=== PATIENT | female | born 1950 | race Caucasian/White ===

== ENCOUNTER 2017-02-08 16:48 | Emergency (ER) | payer MEDICARE, MEDICAID ==
[~2017-02-08] VITALS: Ht 167.6 cm; Wt 81.2 kg
--- NOTE | 2017-02-08 17:10 | Urgent Treatment Center Report ---
History of Present Issue Date/Time Seen by Provider 02/08/17 1709 Visit Reason Pt arrived:Walked Presenting Problem:PT STATES SHE'S HAD BLEEDING FROM THE RECTUM Location if Accident: Onset of symptoms date/time:/ or onset unknown for:MEDICAL HX UNKNOWN Have you (or family members/close friends) recently traveled outside the [place]? N If Yes, where/when: Have you had exposure to infectious disease within the past month? TB? Other? Specify: Patient state that she has had a hemorrhoid for quite awhile now State that earlier today it began to bother her and began to bleed some from it. States that she put a pad on and had to change the pad several times today while at work then this evening it stopped bleeding States that she has an appointment with her family doctor on Tuesday but her family wanted her to come in this evening just to get checked to make sure that she did have a hemorrhoid and not something else going on ALLERGIES Coded Allergies: No Known Allergies (02/08/17) Home Medications Reported Medications Lovastatin 10 MG PO DAILY #30 LISINOPRIL (Lisinopril) 10 MG PO DAILY History Medical History General CAD? No Angina: Yes MS: No Hypertension? No Hyperlipidemia? Yes CHF? No COPD? No Asthma? No Anemia? No Hernia? No Thyroid Problems? No Hypothyroidism? No CVA? No Seizures? No Diabetes? No UTI? Yes Stones? No GB Disease: Yes Nephritic Syndrome? No Asplenia? No Hepatitis? No Sickle Cell Disease? No Arthritis? No Cataracts? No Glaucoma? No MRSA? No TB? No Cancer? No Immunization HX DT/Tetanus 5-10 YRS Flu REFUSES Pneumonia REFUSES Surgical Hx Previous Surgery?Y Tubal Ligation ELBOW CYST R FOOT BUNION HYSTERECTOMY GALLBLADDER R ELBOW REPLACEMENT L ROTATOR CUFF Family History Family HX Diabetes Yes CAD Yes Hypertension Yes Hyperlipidemia Yes Cancer Yes TB No Social History Smoking Hx Smoker: Current Every Day Smoker Tobacco: Yes Type Cigarettes Packs/day 1 1/2 - 2 Packs Alcohol Alcohol: No Review of Systems All Other Systems Reviewed and Negative Comment Pain and bleeding from external hemorrhoid Physical Exam Vital Signs Vital Signs Date Time Temp Pulse Resp B/P Pulse O2 O2 Flow FiO2 Ox Delivery Rate 02/08 1701 98.4 87 20 139/70 97 General Appearance normal appearance, WD/WN, no apparent distress Respiratory Status Yes: trachea midline, chest symmetrical, non tender chest. No: respiratory distress. 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, beeped by hospital dyed yarn operator awaiting call back [facility] Progress Notes [address] Greenfield advised to have patient do sitz bathes at home, prescribe protocort and have them call the office in the morning for appointment Departure Departure Time of Disposition 1729 Disposition DC Home or Self Care(routine) Clinical Impression Primary Impression: Hemorrhoid Qualifiers: Hemorrhoid type: unspecified Qualified Code: K64.9 - Unspecified hemorrhoids Condition STABLE Referrals Chu AMBROSE,Salinas Cardenas MD,Scotty Silva (Family) Patient Instructions DI for Hemorrhoids, Hemorrhoids Additional Instructions Warm sitz baths will help to soothe the rectal area and the Hemorrhoid Use medication as prescribed Tomorrow call Dr Sage/ Surgical clinic for appointment in the next couple days If area begans to bleed again and will not stop go straight to the ER REturn if needed FOllow up with family doctor Discharge Counseling Counseled pt/family regarding diagnosis, medications/RX, home care, follow up needs Prescriptions Current Visit Scripts Hydrocortisone (Proctocort) 1 UNIT TP QID #1 TUBE Apply thin layer of medication to rectal area on hemorrhoid four times daily at 1738
--- NOTE | 2017-02-08 17:10 | Urgent Treatment Center Report ---
History of Present Issue Date/Time Seen by Provider 02/08/17 1709 Visit Reason Pt arrived:Walked Presenting Problem:PT STATES SHE'S HAD BLEEDING FROM THE RECTUM Location if Accident: Onset of symptoms date/time:/ or onset unknown for:MEDICAL HX UNKNOWN Have you (or family members/close friends) recently traveled outside the [place]? N If Yes, where/when: Have you had exposure to infectious disease within the past month? TB? Other? Specify: Patient state that she has had a hemorrhoid for quite awhile now State that earlier today it began to bother her and began to bleed some from it. States that she put a pad on and had to change the pad several times today while at work then this evening it stopped bleeding States that she has an appointment with her family doctor on Tuesday but her family wanted her to come in this evening just to get checked to make sure that she did have a hemorrhoid and not something else going on ALLERGIES Coded Allergies: No Known Allergies (02/08/17) Home Medications Reported Medications Lovastatin 10 MG PO DAILY #30 LISINOPRIL (Lisinopril) 10 MG PO DAILY History Medical History General CAD? No Angina: Yes [place]: No Hypertension? No Hyperlipidemia? Yes CHF? No COPD? No Asthma? No Anemia? No Hernia? No Thyroid Problems? No Hypothyroidism? No CVA? No Seizures? No Diabetes? No UTI? Yes Stones? No GB Disease: Yes Nephritic Syndrome? No Asplenia? No Hepatitis? No Sickle Cell Disease? No Arthritis? No Cataracts? No Glaucoma? No MRSA? No TB? No Cancer? No Immunization HX DT/Tetanus 5-10 YRS Flu REFUSES Pneumonia REFUSES Surgical Hx Previous Surgery?Y Tubal Ligation ELBOW CYST R FOOT BUNION HYSTERECTOMY GALLBLADDER R ELBOW REPLACEMENT L ROTATOR CUFF Family History Family HX Diabetes Yes CAD Yes Hypertension Yes Hyperlipidemia Yes Cancer Yes TB No Social History Smoking Hx Smoker: Current Every Day Smoker Tobacco: Yes Type Cigarettes Packs/day 1 1/2 - 2 Packs Alcohol Alcohol: No Review of Systems All Other Systems Reviewed and Negative Comment Pain and bleeding from external hemorrhoid Physical Exam Vital Signs Vital Signs Date Time Temp Pulse Resp B/P Pulse O2 O2 Flow FiO2 Ox Delivery Rate 02/08 1701 98.4 87 20 139/70 97 General Appearance normal appearance, WD/WN, no apparent distress Respiratory Status Yes: trachea midline, chest symmetrical, non tender chest. No: respiratory distress. 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 by hospital scrap drop operator awaiting call back [facility] Progress Notes [address] Greenfield advised to have patient do sitz bathes at home, prescribe protocort and have them call the office in the morning for appointment Departure Departure Time of Disposition 1729 Disposition DC Home or Self Care(routine) Clinical Impression Primary Impression: Hemorrhoid Qualifiers: Hemorrhoid type: unspecified Qualified Code: K64.9 - Unspecified hemorrhoids Condition STABLE Referrals Chu AMBROSE,Salinas Cardenas MD,Scotty Silva (Family) Patient Instructions DI for Hemorrhoids, Hemorrhoids Additional Instructions Warm sitz baths will help to soothe the rectal area and the Hemorrhoid Use medication as prescribed Tomorrow call Dr Sage/ Surgical clinic for appointment in the next couple days If area begans to bleed again and will not stop go straight to the ER REturn if needed FOllow up with family doctor Discharge Counseling Counseled pt/family regarding diagnosis, medications/RX, home care, follow up needs Prescriptions Current Visit Scripts Hydrocortisone (Proctocort) 1 UNIT TP QID #1 TUBE Apply thin layer of medication to rectal area on hemorrhoid four times daily at 1733
[2017-02-08 17:40] VITALS: BP 139/70
== END 2017-02-08 17:44 | disposition home or self-care (01) ==
LOC: UTC 16:48
DX: K64.9 Unspecified hemorrhoids (principal); E78.5 Hyperlipidemia, unspecified; Z79.899 Other long term (current) drug therapy

== ENCOUNTER → 2017-02-14 | Outpatient (CLI) | payer MEDICARE, MEDICAID ==
[~2017-02-14] MED LIST: ADIPEX-P37.5 MG PO; CIPRO 500MG TA500 MG PO; FLEXERIL10 MG PO; GABAPENTIN300 MG PO; HYDROCODONE/ACE1 TA5 PO; HYDROCODONE1 TABLET PO; IBU800 M1 PO; IBU800 MG PO; LEVAQUIN 750 M750 MG PO; LEVAQUIN500 MG PO; LISINOPRIL 10MG10 MG PO; LORTAB 5/500 501 TAB PO; LORTAB 500 MG-71 TAB PO; LOVASTATIN10 MG PO; MECLIZINE25 MG PO; MEDROL 4MG. DOSE4 MG PO; Meclizine25 MG PO; NAPROSYN 500MG500 MG PO; NEURONTIN 300M300 MG PO; NEXIUM40 MG PO; NOMEDS *; PREDNISONE 20MG20 MG PO; PRILOSEC20 M1 PO; PROCTOCORT1% TP; PROMETHAZINE HC25 M1 PO; SEPTRA DS 800 M1 TA1 PO; TRAMADOL 50MG T50 MG PO; VICODIN 5/500 T1 TAB PO; VOLTAREN75 MG PO; WARFARIN SODIU2.5 MG PO; ZOFRAN 8MG TABLE8 MG PO
[2017-02-14 11:27] LABS: HEMOGLOBIN 12.8 g/dL (12.2-16.2); LYMPH # 1.9 K/mm3 (0.7-4.5); LYMPH % 33.4 % (10-50.0)
[2017-02-14 12:17] LABS: BUN 14 mg/dL (7-18)
[2017-02-14 12:19] LABS: GFR (ESTIMATED) 63 ML/MIN (59-)
== END ==
LOC: LAB 11:11
PROVIDERS: Surgery
DX: K64.5 Perianal venous thrombosis (principal)

== ENCOUNTER 2017-02-15 11:35 | Day surgery (SDC) | payer MEDICARE, MEDICAID ==
[~2017-02-15] VITALS: Ht 170.2 cm; Wt 78.9 kg
--- NOTE | 2017-02-15 15:13 | Anesthesia Record ---
Anesthesia Record Part II Discharge time: 1540 Destination: Same day surgery PACU nurse assessment review? Yes Patient is: Stable Anesthesia complications? No at 1519
--- NOTE | 2017-02-15 15:13 | Anesthesia Record ---
Anesthesia Record Part I Total IV fluids: 900 EBL (ml): 5 Urine Output: 0 B/P: 131/66 % SaO2: 93 Pulse: 85 Resps: 16 Temp: 98.1 Patient is: Drowsy, Stable Stable to PACU at: 1510 at 1514
--- NOTE | 2017-02-15 15:16 | Operative Note ---
Surgeon/Diagnoses Surgeon/Maintenance Service Supervisor(s) Date of procedure: 02/15/17 Surgeon: Salinas Sage Diagnoses Pre-op diagnosis: Thrombosed external hemorrhoid Post-op diagnosis Same Procedure Procedure Procedure: Simple hemorrhoidectomy for external hemorrhoids Indications: SAMIR CH is a 66 year-old Female with a history of hemorrhoids. Patient is a 66-year-old white female referred from the urgent treatment center for hemorrhoid. She states that she's had a swollen tender hemorrhoid for about 3 weeks. Last week she had a large amount of bleeding. She states that she saturated 2 pads. When she was seen in the [facility] the bleeding stopped. She was started on some sort of salve. She still describes some significant tenderness. Of note, the patient underwent colonoscopy by Dr. Rutledge less than 3 years ago and had a benign cecal polyp removed. She was seen in the office yesterday. She had a residual large thrombosed external hemorrhoid in the LEFT posterior lateral location with large amount of residual blood clot. Plan was made for evacuation of clot and simple hemorrhoidectomy. Findings: Thrombosed hemorrhoid in the posterior lateral LEFT location Procedure Description: Consent was obtained patient was taken the operating room. Gen. anesthesia was induced. She was positioned in traditional lithotomy position. Area was prepped and draped in standard surgical fashion. Anoscope was inserted. In the LEFT posterior lateral location she had an external hemorrhoid which was thrombosed with significant amount of residual clots. Limited incision was made. Using Metzenbaum dissection the overlying anoderm was excised. Metzenbaum dissection and was evacuated from the hemorrhoid. This was sent as hemorrhoidal tissue. There was good hemostasis. Local anesthesia was infiltrated. Skin was closed with several interrupted 3-0 chromic sutures. Dressing was applied. EBL (ml): 20 Anesthesia: Gen. Specimens: Hemorrhoidal tissue Disposition Disposition: To PACU at [id number]
[2017-02-15 16:16] VITALS: BP 126/66
== END 2017-02-15 16:10 | disposition home or self-care (01) ==
LOC: SDC 11:35
PROVIDERS: Surgery
PROC: 06BY3ZC Excision of Hemorrhoidal Plexus, Percutaneous Approach (ICD-10-PCS; principal; 2017-02-15 13:30)
DX: K64.5 Perianal venous thrombosis (principal)
CPT/HCPCS: J0131; J2405

== ENCOUNTER 2017-04-10 14:50 | Emergency (ER) | payer MEDICARE, MEDICAID ==
[~2017-04-10] VITALS: Ht 170.2 cm; Wt 81.2 kg
[~2017-04-10 14:50] MED LIST changes: +AMLODIPINE5 M1; +HYDROCODONE-APA1 TA1; +MELOXICAM7.5 MG
[2017-04-10] MEDS ORDERED: CEFTIN 250MG T250 MG PO (15:26)
[2017-04-10] MEDS ORDERED: TESSALON PERLE100 M1 PO (15:26)
--- NOTE | 2017-04-10 15:28 | Emergency Room Report ---
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 N Clinical Suspician of Infection? N Mental Status: 1 - Regular (Normal Baseline) Sepsis Risk:Low Sepsis Risk Have you (or family members/close friends) recently traveled outside the [place]? N If Yes, where/when: Have you had exposure to infectious disease within the past month? N TB? Other? Specify: 66 years old white female with history of hypertension. She developed upper respiratory tract infection in the form of a sore throat and runny nose and sinus congestion. He felt it going down to her chest with a sense of chest heaviness that lasted yesterday. The symptoms resolved today. She continues to have head congestion and cough. Source patient, RN notes reviewed, family Exam Limitations no limitations ALLERGIES Coded Allergies: No Known Allergies (02/15/17) Home Medications Reported Medications Amlodipine Besylate (Amlodipine) Meloxicam (Meloxicam 7.5MG) HYDROCODONE 5MG/APAP 325MG (Hydrocodon-Acetaminophen 5-325) Lovastatin 10 MG PO DAILY #30 History Medical History General CAD? No Angina: Yes [place]: No Hypertension? Yes Hyperlipidemia? Yes CHF? No DVT? No PE? No COPD? No Asthma? No Anemia? No GERD? Yes Gastric ulcers? No GI Bleed? No Hernia? No Thyroid Problems? No Hypothyroidism? No CVA? No Seizures? No Diabetes? No End Stage Renal Disease? No UTI? Yes Stones? No GB Disease: Yes Nephritic Syndrome? No Asplenia? No Hepatitis? No Sickle Cell Disease? No Arthritis? No Cataracts? No Glaucoma? No MRSA? No TB? No Cancer? No Immunization Hx DT/Tetanus 5-10 YRS Flu REFUSES Pneumonia REFUSES Surgical Hx Previous Surgery?Y Tubal Ligation ELBOW CYST R FOOT BUNION HYSTERECTOMY GALLBLADDER R ELBOW REPLACEMENT L ROTATOR CUFF Family History Family Hx Diabetes Yes CAD Yes Hypertension Yes Hyperlipidemia Yes Cancer Yes TB No Social History Smoking Hx Smoker: Never Smoker Tobacco: No Packs/day 1 1/2 - 2 Packs Alcohol Alcohol: No Review of Systems All Other Systems Reviewed and Negative Constitutional no symptoms reported Eyes no symptoms reported ENT no symptoms reported. Respiratory see HPI, cough, shortness of breath Cardiovascular see HPI, chest pain (tightness yesterday that resol) Gastrointestinal no symptoms reported Genitourinary no symptoms reported. Musculoskeletal no symptoms reported Skin no symptoms reported Psychiatric/Neurological no symptoms reported Physical Exam Vital Signs Vital Signs Date Time Temp Pulse Resp B/P Pulse O2 O2 Flow FiO2 Ox Delivery Rate 04/10 1605 97.9 90 18 105/82 98 04/10 1458 97.9 90 18 103/82 98 - WBC >12,000 or <4,000 or 10% bands? 2 or more SIRS Criteria Met? B/P:103/ MAP:89 Creatinine >2.0? UA output<0.5ml/kg/hr for 2 hrs? Platelet count >100,000? Lactate >2.0mmol/1? INR >1.2 or PTT > than 60 sec? Evidence of Organ Dysfunction? Provider documented clinical suspician of infection? N Sepsis Criteria Count: 1 Sepsis Risk: Low Sepsis Risk General Appearance normal appearance, WD/WN, no apparent distress Eye Exam - bilateral eye normal exam, bilateral eye PERRL, bilateral eye EOMI Ear, Nose, Throat hearing grossly normal, normal ENT inspection, sinus pain/ drainage Neck normal inspection, non-tender, supple, full range of motion Respiratory Status Yes: trachea midline, chest symmetrical, non tender chest. No: respiratory distress. Lung Sounds bilateral: normal breath sounds, lungs clear. 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 No Results/Orders Laboratory Tests 04/10/17 1522: Sodium 145, Potassium 3.4 L, Chloride 105, Carbon Dioxide 32, BUN 9, Creatinine 1.0, Estimated Creat Clear 71, Estimated GFR (MDRD) 55 L, Glucose 114 H, Calcium 9.2, Total Bilirubin 0.4, AST 15, ALT 19, Alkaline Phosphatase 93, Creatine Kinase 56, CK-MB (CK-2) Rel Index 0.9, CK and CKMB Interp < 0.5, Troponin I < 0.02, Total Protein 7.5, Albumin 3.6, Globulin 3.9 H, Albumin/ Globulin Ratio 0.9 L, WBC 6.0, RBC 4.50, Hgb 13.4, Hct 40.8, MCV 90.6, RDW 12.4 , Plt Count 207, MPV 9.9, Gran % 64.9, Gran # 3.9, Lymphocytes % 23.7, Monocytes % 7.4, Eosinophils % 3.4, Basophils % 0.7, Lymphocytes # 1.4, Monocytes # 0.5, Eosinophils # 0.2, Basophils # 0.0, PUBS MCHC 32.9, MCH 29.8, Influenza Type A Ag NOT DETECTED, Influenza Type B Ag NOT DETECTED Current Medication Orders Sig/Mariano Start time Last Medication Dose Route Stop Time Status Admin Ondansetron HCl 4 MG ONCE ONE 04/10 1615 DC 04/10 IV 04/10 161 1607 Potassium Chloride 20 MEQ ONCE ONE 04/10 1615 DC PO 04/10 1616 Ondansetron HCl 0 .STK-MED ONE 04/10 1608 DC .ROUTE Albuterol/Ipratropium 0 .STK-MED ONE 04/10 1550 DC INH Ceftriaxone Sodium 0 .STK-MED ONE 04/10 1542 DC IV Sodium Chloride 50 ML .STK-MED ONE 04/10 1541 DC IV Hydrocodone Bit/ 0 .STK-MED ONE 04/10 1540 DC Homatropine MBr PO Methylprednisolone 0 .STK-MED ONE 04/10 1538 DC Sodium Succinate .ROUTE Albuterol/Ipratropium 3 ML ONCE ONE 04/10 1530 DC 04/10 INH 04/10 1531 1551 Ceftriaxone Sodium 1 GM ONCE ONE 04/10 1530 DC 04/10 Sodium Chloride 50 ML IV 04/10 1559 1542 Hydrocodone Bit/ 5 MG ONCE ONE 04/10 1530 DC 04/10 Homatropine MBr PO 04/10 1531 1543 Methylprednisolone 125 MG ONCE ONE 04/10 1530 DC 04/10 Sodium Succinate IV 04/10 1531 1542 Sodium Chloride 10 ML PRN PRN 04/10 1530 AC IV 04/11 1518 Orders Procedure Date/time Status CULTURE, BLOOD 04/10 1531 Active RT REQUEST DUONEB 04/10 1528 Active ELECTROCARDIOGRAM REQUEST 04/10 1518 Active CHEST(2 VIEWS-NOT PORTABLE) 04/10 1518 Active IV SALINE LOCK 04/10 1518 Active INFLUENZA A&B ANTIGENS 04/10 1518 Complete CBC WITH AUTO DIFF 04/10 1518 Complete CARDIAC ENZYMES 04/10 1518 Complete CHEM 12 PROFILE 04/10 1518 Complete XRAY/CT/US XRAY/CT/US XRAY chest XR interpretation by reviewed by me Xray Results abnormal, no infiltrates Comment RIGHT apical pleural thickening versus rotated x ray, No pneumothorax no acute infiltrates. Departure Departure Time of Disposition 1619 Disposition DC Home or Self Care(routine) Clinical Impression Primary Impression: Upper respiratory disease Secondary Impressions: Acute bronchitis, Reactive airway disease Condition STABLE Referrals Mike Cardenas MD Additional Instructions The patient received steroid injections given neb and was breathing better but she felt nausea. He was given some Zofran. Her potassium was 3.4 she was given one tablet of potassium. She will be discharged on antibiotics, cough medicine and an albuterol inhaler. Follow-up with a primary care physician in a.m.. Return if worse or she develops fever or weakness. Or any other symptoms Discharge Counseling Counseled pt/family regarding diagnosis, test results, medications/RX, home care, follow up needs Prescriptions Current Visit Scripts CEFUROXIME AXETIL (CEFTIN 250MG TAB) 250 MG PO BID #14 TAB Benzonatate (Tessalon Perle) 100 MG PO Q4HP [facility]N [facility] [place] SGL ALBUTEROL (Proventil Hfa Inhaler) 1-2 PUFF IH Q4-6H PRN #1 CAN ED Critical Care Critical Care No If Critical Care minutes are documented, the time involved in the performance of seperately reportable procedures was not counted toward critical care time documented. I directly delivered medical care to this critically ill and/or injured patient. Timely evaluation and treatment was necessary to address the significant organ system(s) dysfunction present in this patient. at 7832
[2017-04-10 15:30] LABS: HEMOGLOBIN 13.4 g/dL (12.2-16.2); LYMPH # 1.4 K/mm3 (0.7-4.5); LYMPH % 23.7 % (10-50.0)
[2017-04-10 15:53] LABS: BUN 9 mg/dL (7-18)
[2017-04-10 15:54] LABS: GFR (ESTIMATED) 55 ML/MIN (59-)
--- OUTSIDE RECORDS SUMMARY | 2017-04-10 15:56 | External Medical Summary Rpt ---
Author Author [employer], [employer] Organization [employer] Address Unknown Phone Unavailable Results Basic metabolic panel in Blood Observa Value Referen Units Interpr Notes Date tion ce etation Range Urea 7 - 18 mg/dL Normal No Sep 25 nitrogen informati 2017 [Mass/vol on in 11:11 AM ume] in source Serum or data Plasma Calcium 8.5 - mg/dL Normal No Sep 25 [Mass/vol 10.1 informati 2017 ume] in on in 11:11 AM Serum or source Plasma data Chloride 98 - 107 mmoL/L Normal No Sep 25 [Moles/vo informati 2017 lume] in on in 11:11 AM Serum or source Plasma data Carbon 21.0 - mmoL/L Normal No Sep 25 dioxide, 32.0 informati 2017 total on in 11:11 AM [Moles/vo source lume] in data Serum or Plasma Creatinin 0.55 - mg/dL Normal No Sep 25 e 1.02 informati 2017 [Mass/vol on in 11:11 AM ume] in source Serum or data Plasma Estimated 59- ML/MIN No REFERENCE Sep 25 informati RANGE: 2017 glomerula on in >60 11:11 AM r source ML/MIN/1. filtratio data 73 SQUARE n rate METERSIf (GF this patient is -A merican, then multiply theresult by 1.210. Glucose 74 - 106 mg/dL Normal No Sep 25 [Mass/vol informati 2017 ume] in on in 11:11 AM Serum or source Plasma data Potassium 3.5 - 5.1 mmoL/L Normal No Sep 25 informati 2017 [Moles/vo on in 11:11 AM lume] in source Serum or data Plasma Sodium 136 - 145 mmoL/L Normal No Sep 25 [Moles/vo informati 2017 lume] in on in 11:11 AM Serum or source Plasma data CBC W Auto Differential panel in Blood Observa Value Referen Units Interpr Notes Date tion ce etation Range Basophils 0 - 0.2 K/MM3 Normal No Sep 25 informati 2017 [#/volume on in 11:11 AM ] in source Blood by data Automated count Basophils 0.1 - 2.0 % Normal No Sep 25 /100 informati 2016 leukocyte on in 11:11 AM s in source Blood by data Automated count Eosinophi 0.0 - 0.4 K/mm3 Normal No Sep 25 ls informati 2017 [#/volume on in 11:11 AM ] in source Blood by data Automated count Eosinophi 0.1 - % Normal No Sep 25 ls/100 12.0 informati 2016 leukocyte on in 11:11 AM s in source Blood by data Automated count Granulocy 1.8 - 7.8 K/mm3 Normal No Sep 25 kamlesh informati 2016 [#/volume on in 11:11 AM ] in source Blood by data Automated count Granulocy 37.0 - % Normal No Sep 25 kamlesh/100 80.0 informati 2016 leukocyte on in 11:11 AM s in source Blood by data Automated count Hematocri 37.0 - % Normal No Sep 25 t [Volume 47.0 informati 2017 on in 11:11 AM Fraction] source of Blood data Hemoglobi 12.2 - g/dL Normal No Sep 25 n 16.2 informati 2016 [Mass/vol on in 11:11 AM ume] in source Blood data Lymphocyt 0.7 - 4.5 K/mm3 Normal No Sep 25 es informati 2017 [#/volume on in 11:11 AM ] in source Unspecifi data ed specimen by Automated count Lymphocyt 10 - 50.0 % Normal No Sep 25 es informati 2017 [#/volume on in 11:11 AM ] in source Unspecifi data ed specimen by Automated count Erythrocy 27 - 31.2 pg Normal No Sep 25 te mean informati 2017 corpuscul on in 11:11 AM ar source hemoglobi data n [Entitic mass] Erythrocy 31.8 - g/dl Normal No Sep 25 te mean 35.4 informati 2017 corpuscul on in 11:11 AM ar source hemoglobi data n concentra tion [Mass/vol ume] by Automated count Erythrocy 82.2 - fl Normal No Sep 25 te mean 97.8 informati 2016 corpuscul on in 11:11 AM ar volume source [Entitic data volume] by Automated count Monocytes 0.1 - 1.0 K/mm3 Normal No Sep 25 inform2016 [#/volume on in 11:11 AM ] in source Blood by data Automated count Monocytes 1.7 - 9.3 % Normal No Sep 25 /100 informati 2016 leukocyte on in 11:11 AM s in source Blood by data Automated count Platelet 7.4 - fl Normal No Sep 25 mean 10.4 informati 2016 volume on in 11:11 AM [Entitic source volume] data in Blood by Automated count Platelets 142 - 424 K/mm3 Normal No Sep 25 informati 2016 [#/volume on in 11:11 AM ] in source Blood data Erythrocy 4.2 - 5.4 M/mm3 Normal No Sep 25 kamlesh inform2016 [#/volume on in 11:11 AM ] in source Amniotic data fluid Erythrocy 11.5 - % Normal No Sep 25 te 17.5 informati 2016 distribut on in 11:11 AM ion width source [Entitic data volume] by Automated count Leukocyte 4.8 - K/MM3 Normal No Sep 25 s 10.8 informati 2016 [#/volume on in 11:11 AM ] in source Blood data
--- OUTSIDE RECORDS SUMMARY | 2017-04-10 15:56 | External Medical Summary Rpt | CCD ---
Author Author [employer] Organization [employer] Address Unknown Phone Unavailable Purpose Continuity of Care Document - through 2016
--- OUTSIDE RECORDS SUMMARY | 2017-04-10 15:56 | External Medical Summary Rpt | CCD ---
Author Author , ESTER Organization ESTER Address Unknown Phone [email or web address] Team Providers Care Career Professional Name Role Phone Dwayne Pathak III, MD, Dwayne Lehman III, MD Purpose Continuity of Care Document - 10-19-2012 through 2016 Problems Code Diagnosis DOS Provider Status 786.59 786.59 10-19-2012 [place] CHEST PAIN [facility] E03.9 HYPOTHYROID ISM, UNSPECIFIED E11.9 TYPE 2 DIABETES MELLITUS WITHOUT COMPLICATIO NS E78.4 OTHER HYPERLIPIDE JOSE DAVID E78.5 HYPERLIPIDE JOSE DAVID, UNSPECIFIED K64.5 PERIANAL VENOUS THROMBOSIS L23.9 ALLERGIC CONTACT DERMATITIS, UNSPECIFIED CAUSE M54.16 RADICULOPAT HY, LUMBAR REGION R53.1 WEAKNESS R74.8 ABNORMAL LEVELS OF OTHER SERUM ENZYMES Z12.31 ENCNTR SCREEN MAMMOGRAM FOR MALIGNANT NEOPLASM OF BREAST Allergies, Adverse Reactions, Alerts Type Drug Allergy Adverse Reaction to Substance Substance Reaction Severity No Known Allergies - Unknown Mild Nka NO KNOWN DRUG Unknown Unknown ALLERGIES Medications Na ND Rx Da Fi Fi Am Da Di Ph RX Ph St me C No te ll ll ou ys ag ar # ys at rm s nt no ma ic us Or Da si cy ia de te s n re d 63 05 0 No PI 73 -3 RI 90 0- Lo N 43 20 ng 81 40 13 er 1 MG Ac ti CH ve EW AB LE TA BL ET Ni 68 05 0 No tr 46 -3 og 20 0- Lo ly 14 20 ng ce 64 13 er ri 5 n Ac 0. ti 4M ve G ( 50 Gr ) Vital Signs 10-19-2012 18:40 Name Value Interpretat Reference Comment ion Range Body 98.0 [degF] Temperature BP 71 mm[Hg] Diastolic BP Systolic 131 mm[Hg] Heart 74 /min Rate/Pulse O2% 99 % Respiratory 18 /min Rate 10-19-2012 15:08 Name Value Interpretat Reference Comment ion Range BP 86 mm[Hg] Diastolic BP Systolic 133 mm[Hg] Heart 75 /min Rate/Pulse O2% 98 % Respiratory 18 /min Rate Results Labs Lab Lab Date Result Refere Interp Status Commen Order Detail nces retati t Range on COMPREHENSIVE METABOLIC PANEL (10-19-2012 14:45) Glucose 30-2 89 74-106 complet 013 mg/dL ed Bld-mCn 14:45 c BUN 30-2 19 7-18 complet Bld-mCn 013 mg/dL ed c 14:45 Creat -30-2 0.9 0.6-1.0 complet SerPl-m 013 mg/dL ed Cnc 14:45 GFR 10-19-2 63 59- complet (ESTIMA 013 ML/MIN ed DICK) 14:45 Sodium 10-19-2 140 136-145 complet SerPl-s 013 mmoL/L ed Cnc 14:45 Potassi 10-19-2 4.2 3.5-5.1 complet um 013 mmoL/L ed SerPl-s 14:45 Cnc Chlorid 10-19-2 103 98-107 complet e 013 mmoL/L ed SerPl-s 14:45 Cnc CO2 30-2 27 21.0-32 complet SerPl-s 013 mmoL/L .0 ed Cnc 14:45 Calcium 10-19-2 9.1 8.5-10. complet 013 mg/dL 1 ed SerPl-m 14:45 Cnc Prot -30-2 7.8 6.4-8.2 complet SerPl-m 013 gm/dL ed Cnc 14:45 Albumin -30-2 3.2 3.4-5.0 complet 013 gm/dL ed SerPl-m 14:45 Cnc Globuli -30-2 4.6 1.3-3.2 complet n 013 gm/dL ed Ser-mCn 14:45 c Albumin -30-2 0.7 UNK 1.1-1.8 complet /Glob 013 ed SerPl-m 14:45 Rto Bilirub 30-2 0.4 0.2-1.0 complet 013 mg/dL ed SerPl-m 14:45 Cnc AST 05-30-2 22 U/L 15-37 complet SerPl-c 013 ed Cnc 14:45 ALT 05-30-2 33 U/L 30-65 complet SerPl-c 013 ed Cnc 14:45 ALP 05-30-2 117 U/L 50-136 complet SerPl-c 013 ed Cnc 14:45 CBC with AUTO DIFF (10-19-2012 14:45) WBC # 05-30-2 7.0 4.8-10. complet Bld 013 K/MM3 8 ed Auto 14:45 RBC # 05-30-2 4.36 4.2-5.4 complet Bld 013 M/mm3 ed Auto 14:45 Hgb 05-30-2 12.6 12.2-16 complet Bld-mCn 013 g/dL .2 ed c 14:45 Hct Fr 05-30-2 38.2 % 37.0-47 complet Bld 013 .0 ed 14:45 MCV RBC 05-30-2 87.7 fl 82.2-97 complet 013 .8 ed 14:45 MCH RBC 05-30-2 28.9 pg 27-31.2 complet Qn 013 ed Auto 14:45 MEAN 05-30-2 32.9 31.8-35 complet CORPUSC 013 g/dl .4 ed ULAR 14:45 HGB CONC RDW RBC 05-30-2 14.0 % 11.5-17 complet Auto 013 .5 ed 14:45 Platele 05-30-2 271 142-424 complet t Bld 013 K/mm3 ed Ql 14:45 Manual MEAN 05-30-2 8.7 fl 7.4-10. complet PLATELE 013 4 ed T 14:45 VOLUME Granulo 05-30-2 55.7 % 37.0-80 complet cytes 013 .0 ed Fr Bld 14:45 Auto LYMPH % 05-30-2 33.9 % 10-50.0 complet 013 ed 14:45 Monocyt 05-30-2 5.7 % 1.7-9.3 complet es Fr 013 ed Bld 14:45 Auto Eosinop 05-30-2 3.9 % 0.1-12. complet hil Fr 013 0 ed Bld 14:45 Auto Basophi 05-30-2 0.7 % 0.1-2.0 complet ls Fr 013 ed Bld 14:45 Auto Granulo 05-30-2 3.9 1.8-7.8 complet cytes # 013 K/mm3 ed Bld 14:45 Auto Lymphoc 10-19-2 2.4 0.7-4.5 complet ytes Fr 013 K/mm3 ed Bld 14:45 Auto Monocyt 10-19-2 0.4 0.1-1.0 complet es # 013 K/mm3 ed Bld 14:45 Auto Eosinop 10-19-2 0.3 0.0-0.4 complet hil # 013 K/mm3 ed Bld 14:45 Auto Basophi 2 0.1 0-0.2 complet ls # 013 K/MM3 ed Bld 14:45 Auto Encounters Encounter Start End Date Code Location Performer Type Date Emergency SHEKHAR Lehman (ER) 3 15:10 3 18:42 [facility] Dwayne James
--- OUTSIDE RECORDS SUMMARY | 2017-04-10 15:56 | External Medical Summary Rpt | CCD ---
Author Author , ESTER Organization ESTER Address Unknown Phone [email or web address] Immunization Name Date Rout CVX Reac Dose Comm Prov Is Faci e tion ent ider Refu lity Give sed n Td 03-0 9 999 Hist H149 No H149 (solomon 4-19 oric lt), 97 al Info adso rmat rbed ion - Sour ce Unsp ecif ied
--- OUTSIDE RECORDS SUMMARY | 2017-04-10 15:56 | External Medical Summary Rpt | CCD ---
Author Author , ESTER Organization ESTER Address Unknown Phone [email or web address] Name Date Rout CVX Reac Dose Comm Prov Is Faci e tion ent ider Refu lity Give sed n Td 03-0 9 999 Hist H149 No H149 (solomon 4-19 oric lt), 97 al Info adso rmat rbed ion - Sour ce Unsp ecif ied
--- OUTSIDE RECORDS SUMMARY | 2017-04-10 15:56 | External Medical Summary Rpt | CCD ---
Author Author , ESTER Organization ESTER Address Unknown Phone [email or web address] Care Team Providers Care Contact Lens Polisher Name Role Phone Dwayne Pathak III, MD, Dwayne Lehman III, MD Purpose Continuity of Care Document - 10-19-2012 through 2016 Problems Code Diagnosis DOS Provider Status 786.59 786.59 10-19-2012 [place] CHEST PAIN [facility] E03.9 HYPOTHYROID ISM, UNSPECIFIED E11.9 TYPE 2 [...] SHEKHAR Lehman (ER) 3 15:10 3 18:42 [facility] Dwayne James
[2017-04-10] MEDS ORDERED: PROVENTIL0.09 MG/A1 IH (16:21)
[2017-04-10 16:36] VITALS: BP 108/72
--- NOTE | 2017-04-10 17:35 | RADIOLOGY REPORT PS360 ---
CHEST(2 VIEWS-NOT PORTABLE) Ordering physician: Lila Martin MD Age: 66 years Female INDICATION: COUGHCongestion PROCEDURE: CHEST(2 VIEWS-NOT PORTABLE) COMPARISON Portable chest from September 2012 & July 2011 used as comparison . Also PA and lateral from July 2006 FINDINGS: No significant new findings. Lungs well expanded and clear with nothing definitely acute. . Density at the right cardiophrenic angle stable reflecting anterior fat pad type feature most likely.- Unchanged 2006 Heart normal size. Normal pulmonary vascularity. Hilar and mediastinal structures appear satisfactory. Chest wall unremarkable... Minor gradual dextrocurvature of T-spine again noted. Minor apical pleural thickening stable. . Mild degenerative disc changes mid T-spine again noted-stable. IMPRESSION ----- Stable chest. Nothing definitely acute Mild chronic changes
== END 2017-04-10 16:37 | disposition home or self-care (01) ==
LOC: ER 14:50
PROVIDERS: Emergency Medicine
DX: J06.9 Acute upper respiratory infection, unspecified (principal); K21.9 Gastro-esophageal reflux disease without esophagitis; I10 Essential (primary) hypertension; E78.5 Hyperlipidemia, unspecified
CPT/HCPCS: J2405

== ENCOUNTER 2017-04-19 20:11 | Emergency (ER) | payer MEDICARE, MEDICAID ==
[~2017-04-19] VITALS: Ht 170.2 cm; Wt 78.9 kg
[~2017-04-19 20:11] MED LIST changes: +CEFTIN 250MG T250 MG PO; +PROVENTIL0.09 MG/A1 IH; +TESSALON PERLE100 M1 PO
--- OUTSIDE RECORDS SUMMARY | 2017-04-19 20:19 | External Medical Summary Rpt | CCD ---
Author Author , ESTER Organization ESTER Address Unknown Phone [email or web address] Care Team Providers Care Machine Guide Base Winder Name Role Phone Dwayne Pathak III, MD, Dwayne Lehman III, MD Purpose Continuity of Care Document - 10-19-2012 through 2016 Problems Code Diagnosis DOS Provider Status 786.59 786.59 10-19-2012 [place] CHEST PAIN [facility] E03.9 HYPOTHYROID ISM, UNSPECIFIED E11.9 TYPE 2 DIABETES MELLITUS WITHOUT COMPLICATIO NS E78.4 OTHER HYPERLIPIDE JOSE DAIVD E78.5 HYPERLIPIDE JOSE DAVID, UNSPECIFIED J20.9 ACUTE BRONCHITIS, UNSPECIFIED J39.9 DISEASE OF UPPER RESPIRATORY TRACT, UNSPECIFIED J45.909 UNSPECIFIED ASTHMA, UNCOMPLICAT ED K64.5 PERIANAL VENOUS THROMBOSIS L23.9 ALLERGIC CONTACT [...] Order Detail nces retati t Range on CBC w auto diff (04-10-2017 15:22) Automat = 0.0 0-0.2 complet ed 017 K/MM3 ed blood 15:22 basophi l count (count/ vo Automat = 9.9 7.4-10. complet ed 017 fl 4 ed blood 15:22 platele t mean volume jesusita Blood = 207 142-424 complet platele 017 K/mm3 ed t count 15:22 Red = 4.50 4.2-5.4 complet blood 017 M/mm3 ed cell 15:22 count Automat = 12.4 11.5-17 complet ed 017 % .5 ed erythro 15:22 cyte distrib ution width Blood = 6.0 4.8-10. complet leukocy 017 K/MM3 8 ed kamlesh 15:22 count (number /volume ) Baso % = 0.7 % 0.1-2.0 complet 017 ed 15:22 Automat = 0.2 0.0-0.4 complet ed 017 K/mm3 ed blood 15:22 eosinop hil count Automat = 3.4 % 0.1-12. complet ed 017 0 ed blood 15:22 eosinop hils/10 0 leukocy t Blood = 3.9 1.8-7.8 complet granulo 017 K/mm3 ed cytes 15:22 automat ed count (numb Granulo = 64.9 37.0-80 complet cyte 017 % .0 ed percent 15:22 age Blood = 40.8 37.0-47 complet hematoc 017 % .0 ed rit 15:22 (volume fractio n) Blood = 13.4 12.2-16 complet hemoglo 017 g/dL .2 ed bin 15:22 measure ment (mass/v olum Absolut = 1.4 0.7-4.5 complet e 017 K/mm3 ed lymphoc 15:22 yte count Lymphoc = 23.7 10-50.0 complet yte 017 % ed count, 15:22 blood, automat ed Mean = 29.8 27-31.2 complet corpusc 017 pg ed ular 15:22 hemoglo bin (MCH) determ Automat = 32.9 31.8-35 complet ed 017 g/dl .4 ed erythro 15:22 cyte mean corpusc ular h Automat = 90.6 82.2-97 complet ed 017 fl .8 ed erythro 15:22 cyte mean corpusc ular v Absolut = 0.5 0.1-1.0 complet e 017 K/mm3 ed monocyt 15:22 e count [place] % = 7.4 % 1.7-9.3 complet 017 ed 15:22 Influenza A and B virus antigen assay (04-10-2017 15:22) Influen NOT NOT complet za A ag 017 DETECTE DETECTD ed QL 15:22 D NOT DETECTE D L Influen NOT NOT complet za 017 DETECTE DETECTD ed virus B 15:22 D NOT DETECTE antigen D L detecti on Cardiac enzymes (04-10-2017 15:22) Serum = 0.9 0-4.0 complet or 017 U/L ed plasma 15:22 creatin e kinase MB (CK-M Serum < 0.5 0.0-3.6 complet or 017 ng/mL ed plasma 15:22 creatin e kinase MB measu Serum = 56 26-192 complet or 017 U/L ed plasma 15:22 creatin e kinase measure m Serum < 0.02 0.00-0. complet or 017 ng/mL 06 ed plasma 15:22 troponi n i.cardi ac measu Comprehensive metabolic panel (04-10-2017 15:22) Serum 04-10-2 = 0.9 1.1-1.8 complet or 017 ed plasma 15:22 albumin /globul in mass ra Serum 04-10-2 = 3.6 3.4-5.0 complet or 017 gm/dL ed plasma 15:22 albumin measure ment (mas Serum = 93 46-116 complet or 017 U/L ed plasma 15:22 alkalin e phospha tase jesusita Serum 2 = 0.4 0.2-1.0 complet or 017 mg/dL ed plasma 15:22 total bilirub in measure m Serum = 9 7-18 complet or 017 mg/dL ed plasma 15:22 urea nitroge n measure men Serum = 9.2 8.5-10. complet or 017 mg/dL 1 ed plasma 15:22 calcium measure ment (mas Serum = 105 98-107 complet or 017 mmoL/L ed plasma 15:22 chlorid e measure ment (mo Carbon = 32 21.0-32 complet dioxide 017 mmoL/L .0 ed 15:22 measure ment Serum = 1.0 0.55-1. complet or 017 mg/dL 02 ed plasma 15:22 creatin ine measure ment ( Estimat = 71 50-200 complet ion of 017 ML/MIN ed creatin 15:22 ine renal clearan ce Estimat = 55 59- complet ed 017 ML/MIN ed glomeru 15:22 lar filtrat ion rate (GF Comment: REFERENCE RANGE: >60 ML/MIN/1.73 SQUARE METERS Comment: If this patient is -[place], then multiply the Comment: result by 1.210. Serum 04-10-2 = 3.9 1.3-3.2 complet globuli 017 gm/dL ed n 15:22 measure ment (mass/v olume) Serum = 114 74-106 complet or 017 mg/dL ed plasma 15:22 glucose measure ment (mas Serum 2 = 3.4 3.5-5.1 complet potassi 017 mmoL/L ed um 15:22 measure ment Serum = 145 136-145 complet sodium 017 mmoL/L ed measure 15:22 ment Serum = 15 15-37 complet or 017 U/L ed plasma 15:22 asparta te aminotr ansfera ALT = 19 12-78 complet (SGPT) 017 U/L ed ser/jordi 15:22 s Protein = 7.5 6.4-8.2 complet total 017 gm/dL ed ser/jordi 15:22 s Influenza virus A+B Ag [Presence] in Unspecified specimen (04-10-2017 15:22) Influen NOT NOT complet za 017 DETECTE DETECTD ed virus A 15:22 D Ag [Presen ce] in Unspeci fied specime n Influen NOT NOT complet za 017 DETECTE DETECTD ed virus B 15:22 D Ag [Presen ce] in Unspeci fied specime n COMPREHENSIVE METABOLIC PANEL (10-19-2012 14:45) Glucose 89 74-106 complet 013 mg/dL ed Bld-mCn 14:45 c BUN 19 7-18 complet Bld-mCn 013 mg/dL ed c 14:45 Creat 10-19- 0.9 0.6-1.0 complet SerPl-m 013 mg/dL ed Cnc 14:45 GFR 10-19- 63 59- complet (ESTIMA 013 ML/MIN ed DICK) 14:45 Sodium 140 136-145 complet SerPl-s 013 mmoL/L ed Cnc 14:45 Potassi 4.2 3.5-5.1 complet um 013 mmoL/L ed SerPl-s 14:45 Cnc Chlorid 10-19- 103 98-107 complet e 013 mmoL/L ed SerPl-s 14:45 Cnc CO2 10-19-2 27 21.0-32 complet SerPl-s 013 mmoL/L .0 ed Cnc 14:45 Calcium 10-19-2 9.1 8.5-10. complet 013 mg/dL 1 ed SerPl-m 14:45 Cnc Prot 10-19-2 7.8 6.4-8.2 complet SerPl-m 013 gm/dL ed Cnc 14:45 Albumin 10-19-2 3.2 3.4-5.0 complet 013 gm/dL ed SerPl-m 14:45 Cnc Globuli 05-30-2 4.6 1.3-3.2 complet n 013 gm/dL ed Ser-mCn 14:45 c Albumin 05-30-2 0.7 UNK 1.1-1.8 complet /Glob 013 ed SerPl-m 14:45 Rto Bilirub 05-30-2 0.4 0.2-1.0 complet 013 mg/dL ed SerPl-m [...] 013 K/mm3 ed Bld 14:45 Auto Lymphoc 05-30-2 2.4 0.7-4.5 complet ytes Fr 013 K/mm3 ed Bld 14:45 Auto Monocyt 05-30-2 0.4 0.1-1.0 complet es # 013 K/mm3 ed Bld 14:45 Auto Eosinop 05-30-2 0.3 0.0-0.4 complet hil # 013 K/mm3 ed Bld 14:45 Auto Basophi 05-30-2 0.1 0-0.2 complet ls # 013 K/MM3 ed Bld 14:45 Auto Encounters Encounter Start End Date Code Location Performer Type Date Emergency SHEKHAR Lehman (ER) 3 15:10 3 18:42 [facility] Dwayne James
--- OUTSIDE RECORDS SUMMARY | 2017-04-19 20:19 | External Medical Summary Rpt | CCD ---
Author Author , ESTER Organization ESTER Address Unknown Phone [email or web address] Team Providers Care Lead Data Architect Name Role Phone Dwayne Pathak III, MD, Dwayne Lehman III, MD Purpose Continuity of Care Document - 10-19-2012 through 2016 Problems Code Diagnosis DOS Provider Status 786.59 786.59 10-19-2012 [place] CHEST PAIN [facility] E03.9 HYPOTHYROID ISM, UNSPECIFIED E11.9 TYPE 2 DIABETES MELLITUS WITHOUT COMPLICATIO NS E78.4 OTHER HYPERLIPIDE JOSE DAVID E78.5 HYPERLIPIDE JOSE DAVID, UNSPECIFIED J20.9 ACUTE [...] 017 K/mm3 ed monocyt 15:22 e count [place] % = 7.4 % 1.7-9.3 complet 017 [...] SQUARE METERS Comment: If this patient is -[place], then multiply the Comment: result by 1.210. [...] SHEKHAR Lehman (ER) 3 15:10 3 18:42 [facility] Dwayne James
--- OUTSIDE RECORDS SUMMARY | 2017-04-19 20:20 | External Medical Summary Rpt ---
Author Author ESTER Cohen, ESTER Production Organization ESTER [employer] Address Unknown Phone Unavailable Results Influenza virus A+B Ag [Presence] in Unspecified specimen Observa Value Referen Units Interpr Notes Date tion ce etation Range Influen NOT NOT No No No Apr 10 za DETECTE DETECTD informa informa informa 2017 virus A D tion in tion in tion in 3:22 PM Ag source source source [Presen data data data ce] in Unspeci fied specime n Influen NOT NOT No No No Apr 10 za DETECTE DETECTD informa informa informa 2017 virus B D tion in tion in tion in 3:22 PM Ag source source source [Presen data data data ce] in Unspeci fied specime n CBC W Auto Differential panel in Blood Observa Value Referen Units Interpr Notes Date tion ce etation Range Basophils 0 - 0.2 K/MM3 Normal No Apr 10 informati 2016 3:22 [#/volume on in PM ] in source Blood by data Automated count Basophils 0.1 - 2.0 % Normal No Apr 10 informati 2016 3:22 leukocyte on in PM s in source Blood by data Automated count Eosinophi 0.0 - 0.4 K/mm3 Normal No Apr 10 ls informati 2016 3:22 [#/volume on in PM ] in source Blood by data Automated count Eosinophi 0.1 - % Normal No Apr 10 ls/100 12.0 informati 2016 3:22 leukocyte on in PM s in source Blood by data Automated count Granulocy 1.8 - 7.8 K/mm3 Normal No Apr 10 kamlesh informati 2016 3:22 [#/volume on in PM ] in source Blood by data Automated count Granulocy 37.0 - % Normal No Apr 10 kamlesh/100 80.0 informati 2016 3:22 leukocyte on in PM s in source Blood by data Automated count Hematocri 37.0 - % Normal No Apr 10 t [Volume 47.0 informati 2017 3:22 on in PM Fraction] source of Blood data Hemoglobi 12.2 - g/dL Normal No Apr 10 n 16.2 informati 2016 3:22 [Mass/vol on in PM ume] in source Blood data Lymphocyt 0.7 - 4.5 K/mm3 Normal No Apr 10 es informati 2016 3:22 [#/volume on in PM ] in source Unspecifi data ed specimen by Automated count Lymphocyt 10 - 50.0 % Normal No Apr 10 es informati 2016 3:22 [#/volume on in PM ] in source Unspecifi data ed specimen by Automated count Erythrocy 27 - 31.2 pg Normal No Apr 10 te mean informati 2016 3:22 corpuscul on in PM ar source hemoglobi data n [Entitic mass] Erythrocy 31.8 - g/dl Normal No Apr 10 te mean 35.4 informati 2016 3:22 corpuscul on in PM ar source hemoglobi data n concentra tion [Mass/vol ume] by Automated count Erythrocy 82.2 - fl Normal No Apr 10 te mean 97.8 informati 2016 3:22 corpuscul on in PM ar volume source [Entitic data volume] by Automated count Monocytes 0.1 - 1.0 K/mm3 Normal No Apr 10 informati 2016 3:22 [#/volume on in PM ] in source Blood by data Automated count Monocytes 1.7 - 9.3 % Normal No Apr 10 /100 informati 2016 3:22 leukocyte on in PM s in source Blood by data Automated count Platelet 7.4 - fl Normal Apr 10 mean 10.4 informati 2016 3:22 volume on in PM [Entitic source volume] data in Blood by Automated count Platelets 142 - 424 K/mm3 Normal No Apr 10 informati 2016 3:22 [#/volume on in PM ] in source Blood data Erythrocy 4.2 - 5.4 M/mm3 Normal No Apr 10 kamlesh informati 2017 3:22 [#/volume on in PM ] in source Amniotic data fluid Erythrocy 11.5 - % Normal No Apr 10 te 17.5 informati 2016 3:22 distribut on in PM ion width source [Entitic data volume] by Automated count Leukocyte 4.8 - K/MM3 Normal No Apr 10 s 10.8 informati 2016 3:22 [#/volume on in PM ] in source Blood data Basic metabolic panel in Blood Observa Value Referen Units Interpr Notes Date tion ce etation Range Urea 7 - 18 mg/dL Normal No Sep 25 nitrogen informati 2016 [Mass/vol on in 11:11 AM ume] in source Serum or data Plasma Calcium 8.5 - mg/dL Normal No Sep 25 [Mass/vol 10.1 informati 2016 ume] in on in 11:11 AM Serum [...] Normal No Sep 25 e 1.02 informati 2016 [Mass/vol on in 11:11 AM ume] in source Serum or data Plasma Estimated 59- ML/MIN No REFERENCE Sep 25 informati RANGE: 2017 glomerula on in >60 11:11 AM r source ML/MIN/1. filtratio data 73 SQUARE n rate METERSIf (GF this patient is -A [place], then multiply theresult by 1.210. Glucose 74 - 106 mg/dL Normal No Sep 25 [Mass/vol informati 2016 ume] in on in 11:11 AM Serum or source Plasma data Potassium 3.5 - 5.1 mmoL/L Normal No Sep 25 inform2016 [Moles/vo on in 11:11 AM lume] in source Serum or data Plasma Sodium 136 - 145 mmoL/L Normal No Sep 25 [Moles/vo informati 2017 lume] in on in 11:11 AM Serum or source Plasma data CBC W Auto Differential panel in Blood Observa Value Referen Units Interpr Notes Date tion ce etation Range Basophils 0 - 0.2 K/MM3 Normal No Sep 25 informati 2016 [#/volume on in 11:11 AM ] in source Blood by data Automated count Basophils 0.1 - 2.0 % Normal No Sep 25 /100 informati 2016 leukocyte on in 11:11 AM s in source Blood by data Automated count Eosinophi 0.0 - 0.4 K/mm3 Normal No Sep 25 ls informati 2016 [#/volume on in 11:11 AM [...] No Sep 25 te mean 97.8 informati 2017 corpuscul on in 11:11 AM ar volume source [Entitic data volume] by Automated count Monocytes 0.1 - 1.0 K/mm3 Normal No Sep 25 informati 2016 [#/volume on in 11:11 AM ] in source Blood by data Automated count Monocytes 1.7 - 9.3 % Normal No Sep 25 /100 informati 2017 leukocyte on in 11:11 AM s in [...] 5.4 M/mm3 Normal No Sep 25 kamlesh informati 2016 [...]
--- OUTSIDE RECORDS SUMMARY | 2017-04-19 20:20 | External Medical Summary Rpt | CCD ---
Author Author , ESTER Organization ESTER Address Unknown Phone [email or web address] Immunization Name Date Rout CVX Reac Dose Comm Prov Is Faci e tion ent ider Refu lity Give sed n Td 03-0 9 999 Hist H149 No H149 (solomon 4-19 oric lt), 97 al Info adso rmat rbed ion - Sour ce Unsp ecif ied
--- OUTSIDE RECORDS SUMMARY | 2017-04-19 20:20 | External Medical Summary Rpt | CCD ---
Author Author , ESTER Organization ESTER Address Unknown Phone [email or web address] Immunization Name Date Rout CVX Reac Dose Comm Prov Is Faci e tion ent ider Refu lity Give sed n Td 03-0 9 999 Hist H149 No H149 (solomon 4-19 oric lt), 97 al Info adso rmat rbed ion - Sour ce Unsp ecif ied
--- NOTE | 2017-04-19 20:21 | Emergency Room Report ---
History of Present Illness Time Seen by 2016 Presenting Problem in Triage Pt arrived:Walked Presenting Problem:PT WAS EATING [employer] EARLIER THIS EVENING WHEN SHE FELT PAIN IN HER MIDSTERNAL AREA AFTER SHE SWALLOWED. SHE INITIALLY DESCRIBED SHARP THAT RADIATES THROUGH TO HER LEFT SIDE RIB CAGE; THOUGHT IT WAS INDIGESTION AND TOOK A TEASPOON OF BAKING SODA AND WATER TO RELIEVE IT. SHE CLAIMS SHE HAS NAUSEA AND PAIN PRIMARILY ON LEFT SIDE. 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 N Clinical Suspician of Infection? N Mental Status: 1 - Regular (Normal Baseline) Sepsis Risk:Possible Sepsis Risk Have you (or family members/close friends) recently traveled outside the [place]? N If Yes, where/when: Have you had exposure to infectious disease within the past month? TB? Other? Specify: Source patient, RN notes reviewed, family, old records Exam Limitations no limitations Comment acute onset of ant chest pain with feeling of sob / no syncope Cardiac Chest Pain Chest pain indicative of cardiac Yes Timing/Duration 1-3 hours, gone now Severity/Quality moderate, pressure Location central Chest Pain Radiation back Activities at Onset light activity Nitro Today/Relief no nitro taken today Aspirin Treatment Today no aspirin today Beta salvatore treatment today no beta salvatore taken Cardiac risk factors Uncontrolled HTN, Elevated lipids, + family history Prior Workup/Intervention stress test Timing/Duration this evening Severity moderate ALLERGIES Coded Allergies: No Known Allergies (04/19/17) Home Medications Active Scripts CEFUROXIME AXETIL (CEFTIN 250MG TAB) 250 MG PO BID #14 TAB Prov: 04/10/17 Benzonatate (Tessalon Perle) 100 MG PO Q4HP PRN coupgh #24 SGL Prov: 04/10/17 ALBUTEROL (Proventil Hfa Inhaler) 1-2 PUFF IH Q4-6H PRN #1 CAN Prov: 04/10/17 Reported Medications Amlodipine Besylate (Amlodipine) Meloxicam (Meloxicam 7.5MG) HYDROCODONE 5MG/APAP 325MG (Hydrocodon-Acetaminophen 5-325) Lovastatin 10 MG PO DAILY #30 History Medical History General CAD? No Angina: Yes [place]: No Hypertension? Yes Hyperlipidemia? Yes CHF? No DVT? No PE? No COPD? No Asthma? No Anemia? No GERD? Yes Gastric ulcers? No GI Bleed? No Hernia? No Thyroid Problems? No Hypothyroidism? No CVA? No Seizures? No Diabetes? No End Stage Renal Disease? No UTI? Yes Stones? No GB Disease: Yes Nephritic Syndrome? No Asplenia? No Hepatitis? No Sickle Cell Disease? No Arthritis? No Cataracts? No Glaucoma? No MRSA? No TB? No Cancer? No Immunization Hx Ped.Immunizations UTD Yes DT/Tetanus 5-10 YRS Flu REFUSES Pneumonia REFUSES Surgical Hx Previous Surgery?Y Tubal Ligation ELBOW CYST R FOOT BUNION HYSTERECTOMY GALLBLADDER R ELBOW REPLACEMENT L ROTATOR CUFF Family History Family Hx Diabetes Yes CAD Yes Hypertension Yes Hyperlipidemia Yes Cancer Yes TB No Social History Smoking Hx Smoker: Former Smoker Tobacco: Yes Type Cigarettes Packs/day 1 1/2 - 2 Packs Alcohol Alcohol: No Drugs none Review of Systems All Other Systems Reviewed and Negative Constitutional denies fever Eyes denies drainage ENT denies: ear discharge, epistaxis, throat pain. Respiratory denies cough, denies shortness of breath, denies wheezing Cardiovascular chest pain, denies palpitations, denies syncope Gastrointestinal denies abdominal pain, denies diarrhea, denies vomiting Genitourinary denies: dysuria, frequency, hesitancy, hematuria. Musculoskeletal denies back pain, denies joint pain, denies joint swelling, denies neck pain Skin denies rash Psychiatric/Neurological denies headache, denies seizure Physical Exam Vital Signs Vital Signs Date Time Temp Pulse Resp B/P Pulse O2 O2 Flow FiO2 Ox Delivery Rate 04/19 2012 97.8 95 24 186/93 97 - WBC >12,000 or <4,000 or 10% bands? 2 or more SIRS Criteria Met? B/P:186/93 MAP:124 Creatinine >2.0? UA output<0.5ml/kg/hr for 2 hrs? Platelet count >100,000? Lactate >2.0mmol/1? INR >1.2 or PTT > than 60 sec? Evidence of Organ Dysfunction? Provider documented clinical suspician of infection? N Sepsis Criteria Count: 2 Sepsis Risk: Possible Sepsis Risk General Appearance no apparent distress Eye Exam - bilateral eye PERRL, bilateral eye EOMI Ear, Nose, Throat normal ENT inspection Neck supple Respiratory Status No: respiratory distress. Lung Sounds bilateral: lungs clear. 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 No Results/Orders Laboratory Tests 04/19/17 2018: Sodium 142, Potassium 3.5, Chloride 105, Carbon Dioxide 29, BUN 8, Creatinine 0.9, Estimated Creat Clear 77, Estimated GFR (MDRD) 63, Glucose 104, Calcium 9.5 , Total Bilirubin 0.3, AST 19, ALT 24, Alkaline Phosphatase 93, Creatine Kinase 91, CK-MB (CK-2) Rel Index 1.1, CK and CKMB Interp 1.0, Troponin I < 0.02, Total Protein 8.1, Albumin 4.0, Globulin 4.1 H, Albumin/Globulin Ratio 1.0 L, Lipase 118, WBC 8.5, RBC 4.33, Hgb 12.9, Hct 38.3, MCV 88.6, RDW 12.4, Plt Count 244, MPV 9.2, Gran % 56.2, Gran # 4.8, Lymphocytes % 34.1, Monocytes % 6.7, Eosinophils % 2.5, Basophils % 0.5, Lymphocytes # 2.9, Monocytes # 0.6, Eosinophils # 0.2, Basophils # 0.0, PUBS MCHC 33.6, MCH 29.8 Current Medication Orders Sig/Mariano Start time Last Medication Dose Route Stop Time Status Admin Multi-Ingredient GI 60 ML ONCE ONE 04/19 2100 DC 04/19 Drug PO 04/19 Ondansetron HCl 4 MG ONCE ONE 04/19 2100 DC 04/19 IV 04/19 Ondansetron HCl 0 .STK-MED ONE 04/19 2051 DC .ROUTE Multi-Ingredient GI 0 .STK-MED ONE 04/19 2050 DC Drug PO Aspirin 324 MG ONCE ONE 04/19 2030 CAN PO 04/19 2031 Famotidine 20 MG ONCE ONE 04/19 2030 DC 04/19 IV 04/19 Metoclopramide HCl 10 MG ONCE ONE 04/19 2030 DC 04/19 IVP 04/19 Multi-Ingredient GI 60 ML ONCE ONE 04/19 2030 CAN Drug PO 04/19 2031 Sodium Chloride 10 ML PRN PRN 04/19 2030 AC IV 04/20 2016 Sodium Chloride 8 ML ONCE ONE 04/19 2030 DC IV 04/19 2031 Famotidine 0 .STK-MED ONE 04/19 2020 DC IV Metoclopramide HCl 0 .STK-MED ONE 04/19 2020 DC .ROUTE Orders Procedure Date/time Status ELECTROCARDIOGRAM REQUEST 04/19 2017 Active CHEST(2 VIEWS-NOT PORTABLE) 04/19 2017 Active IV SALINE LOCK 04/19 2017 Active LIPASE 04/19 2017 Complete CBC WITH AUTO DIFF 04/19 2017 Complete CARDIAC ENZYMES 04/19 2017 Complete CHEM 12 PROFILE 04/19 2017 Complete 12 LEAD EKG-ELIZABET (INITIAL) 04/19 UNK 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 of ischemic chgs XRAY/CT/US XRAY/CT/US XRAY chest XR interpretation by reviewed by me Xray Results normal/NAD KARLOS Score for N-Stemi/Angina KARLOS N-STEMI SCORE KARLOS N-STEMI SCORE Response Value Age of patient 65 yrs or more 1 Number of risk factors for CAD Presence of 3 or more 1 Prior coronary artery stenosis (seen in angiography) Less than 50% 0 ST-Segment deviation on ECG (>1 min) Absent 0 Prior aspirin intake No ASA in the last 7 days 0 Severe anginal chest pain No or 1 episode in 24h 0 Elevated cardiac markers(CK-MB or troponin) Absent 0 Total 2 Risk Stratification 0-2= Low Risk Patients Departure Departure Time of Disposition 2135 Disposition DC Home or Self Care(routine) Clinical Impression Primary Impression: Chest pain Qualifiers: Chest pain type: unspecified Qualified Code: R07.9 - Chest pain, unspecified Condition STABLE Referrals Scotty Cardenas MD (Family) Patient Instructions DI for Chest Pain Additional Instructions call pcp for follow up and gxt Discharge Counseling Counseled pt/family regarding diagnosis, test results, follow up needs ED Critical Care Critical Care No at [id number]
[2017-04-19 20:26] LABS: HEMOGLOBIN 12.9 g/dL (12.2-16.2); LYMPH # 2.9 K/mm3 (0.7-4.5); LYMPH % 34.1 % (10-50.0)
[2017-04-19 20:52] LABS: BUN 8 mg/dL (7-18); GFR (ESTIMATED) 63 ML/MIN (59-)
[2017-04-19 21:41] VITALS: BP 126/77
--- NOTE | 2017-04-20 05:26 | RADIOLOGY REPORT PS360 ---
CHEST(2 VIEWS-NOT PORTABLE) HISTORY: Chest pain MIDSTERNAL PAIN ORDERING PHYSICIAN: iMke Cardenas MD PATIENT AGE: 66 years COMPARISON: 04/10/2017 FINDINGS: The cardiomediastinal silhouette and pulmonary vascularity are within normal limits. The lungs are clear without infiltrates, suspicious nodules, or pleural effusions. No acute bony abnormalities. Increased density along right heart border at the cardial phrenic junction consistent with pericardial fat pad as previously noted. There are degenerative changes in thoracic spine. IMPRESSION: No change with no acute finding
--- NOTE | 2017-04-20 05:26 | RADIOLOGY REPORT PS360 ---
CHEST(2 VIEWS-NOT PORTABLE) HISTORY: Chest pain MIDSTERNAL PAIN ORDERING PHYSICIAN: Mike Cardenas MD PATIENT AGE: 66 years COMPARISON: 04/10/2017 FINDINGS: The cardiomediastinal silhouette and pulmonary vascularity are within normal limits. The lungs are clear without infiltrates, suspicious nodules, or pleural effusions. No acute bony abnormalities. Increased density along right heart border at the cardial phrenic junction consistent with pericardial fat pad as previously noted. There are degenerative changes in thoracic spine. IMPRESSION: No change with no acute finding
== END 2017-04-19 21:43 | disposition home or self-care (01) ==
LOC: ER 20:11
PROVIDERS: Emergency Medicine
DX: R07.9 Chest pain, unspecified (principal); E78.5 Hyperlipidemia, unspecified; I10 Essential (primary) hypertension; I20.8 Other forms of angina pectoris
CPT/HCPCS: J2405

== ENCOUNTER 2017-04-24 11:34 | Emergency (ER) | payer MEDICARE, MEDICAID ==
[~2017-04-24] VITALS: Ht 170.2 cm; Wt 78.9 kg
--- NOTE | 2017-04-24 11:49 | Emergency Room Report ---
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 N Clinical Suspician of Infection? N Mental Status: 1 - Regular (Normal Baseline) Sepsis Risk:Low Sepsis Risk Have you (or family members/close friends) recently traveled outside the [place]? N If Yes, where/when: Have you had exposure to infectious disease within the past month? TB? Other? Specify: Source patient, RN notes reviewed, family, old records Exam Limitations no limitations Comment pt ate fast food and now has had vomiting and diarrhea but no blood in stool and no fever Cardiac Chest Pain Chest pain indicative of cardiac No Timing/Duration this afternoon Severity moderate ALLERGIES Coded Allergies: No Known Allergies (04/24/17) Home Medications Active Scripts CEFUROXIME AXETIL (CEFTIN 250MG TAB) 250 MG PO BID #14 TAB Prov: 04/10/17 Benzonatate (Tessalon Perle) 100 MG PO Q4HP PRN coupgh #24 SGL Prov: 04/10/17 ALBUTEROL (Proventil Hfa Inhaler) 1-2 PUFF IH Q4-6H PRN #1 CAN Prov: 04/10/17 Reported Medications Amlodipine Besylate (Amlodipine) Meloxicam (Meloxicam 7.5MG) HYDROCODONE 5MG/APAP 325MG (Hydrocodon-Acetaminophen 5-325) Lovastatin 10 MG PO DAILY #30 History Medical History General CAD? No Angina: Yes [place]: No Hypertension? Yes Hyperlipidemia? Yes CHF? No DVT? No PE? No COPD? No Asthma? No Anemia? No GERD? Yes Gastric ulcers? No GI Bleed? No Hernia? No Thyroid Problems? No Hypothyroidism? No CVA? No Seizures? No Diabetes? No End Stage Renal Disease? No UTI? Yes Stones? No GB Disease: Yes Nephritic Syndrome? No Asplenia? No Hepatitis? No Sickle Cell Disease? No Arthritis? No Cataracts? No Glaucoma? No MRSA? No TB? No Cancer? No Immunization Hx Ped.Immunizations UTD Yes DT/Tetanus 5-10 YRS Flu REFUSES Pneumonia REFUSES Surgical Hx Previous Surgery?Y Tubal Ligation ELBOW CYST R FOOT BUNION HYSTERECTOMY GALLBLADDER R ELBOW REPLACEMENT L ROTATOR CUFF Family History Family Hx Diabetes Yes CAD Yes Hypertension Yes Hyperlipidemia Yes Cancer Yes TB No Social History Smoking Hx Smoker: Current Every Day Smoker Tobacco: Yes Type Cigarettes Packs/day 1 1/2 - 2 Packs Alcohol Alcohol: No Drugs none Review of Systems All Other Systems Reviewed and Negative Constitutional denies fever Eyes denies drainage ENT denies: ear discharge, epistaxis, throat pain. Respiratory denies cough, denies shortness of breath, denies wheezing Cardiovascular denies chest pain, denies palpitations, denies syncope Gastrointestinal see HPI, abdominal pain, diarrhea, nausea, vomiting Genitourinary denies: dysuria, frequency, hesitancy, hematuria. Musculoskeletal denies back pain, denies joint pain, denies joint swelling, denies neck pain Skin denies rash Psychiatric/Neurological denies headache, denies seizure Physical Exam Vital Signs Vital Signs Date Time Temp Pulse Resp B/P Pulse O2 O2 Flow FiO2 Ox Delivery Rate 04/24 1308 99.8 99 18 168/84 97 04/24 1138 97.8 103 18 142/78 97 - WBC >12,000 or <4,000 or 10% bands? 2 or more SIRS Criteria Met? B/P:168/84 MAP:99 Creatinine >2.0? UA output<0.5ml/kg/hr for 2 hrs? Platelet count >100,000? Lactate >2.0mmol/1? INR >1.2 or PTT > than 60 sec? Evidence of Organ Dysfunction? Provider documented clinical suspician of infection? N Sepsis Criteria Count: 1 Sepsis Risk: Low Sepsis Risk General Appearance no apparent distress Eye Exam - bilateral eye PERRL, bilateral eye EOMI Ear, Nose, Throat normal ENT inspection Neck supple Respiratory Status No: respiratory distress. 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 No Results/Orders Laboratory Tests 04/24/17 1145: Amylase 29, Lipase 75 04/24/17 1145: Sodium 139, Potassium 3.3 L, Chloride 105, Carbon Dioxide 26, BUN 13, Creatinine 0.9, Estimated Creat Clear 77, Estimated GFR (MDRD) 63, Glucose 102, Calcium 8.6, Total Bilirubin 0.9, AST 17, ALT 20, Alkaline Phosphatase 81, Total Protein 7.2, Albumin 3.6, Globulin 3.6 H, Albumin/Globulin Ratio 1.0 L, WBC 9.1, RBC 4.15 L, Hgb 12.6, Hct 37.3, MCV 89.8, RDW 12.4, Plt Count 189, MPV 9.5 , Gran % 86.4 H, Gran # 7.9 H, Total Counted 100, Lymphocytes % 8.4 L, Monocytes % 3.3, Eosinophils % 1.8, Basophils % 0.1, Neutrophils 88 H, Band Neutrophils 1, Lymphocytes (Manual) 7 L, Lymphocytes # 0.8, Monocytes (Manual) 3, Monocytes # 0.3, Eosinophils # 0.2, Eosinophils # (Manual) 1, Basophils # 0.0 , Platelet Estimate NORMAL, PUBS MCHC 33.7, MCH 30.3 Current Medication Orders Sig/Mariano Start time Last Medication Dose Route Stop Time Status Admin Sodium Chloride 1,000 ML .Q1H1M 04/24 1315 AC 04/24 IV 04/24 1415 1310 Sodium Chloride 10 ML PRN PRN 04/24 1315 AC IV 04/25 1306 Sodium Chloride 1,000 ML .STK-MED ONE 04/24 1307 DC IV Ondansetron HCl 4 MG ONCE ONE 04/24 1145 DC 04/24 IV 04/24 1146 1149 Sodium Chloride 10 ML PRN PRN 04/24 1145 AC IV 04/25 1141 Sodium Chloride 1,000 ML .Q1H1M 04/24 1145 DC 04/24 IV 04/24 1245 1149 Sodium Chloride 10 ML PRN PRN 04/24 1145 AC IV 04/25 1142 Sodium Chloride 1,000 ML .STK-MED ONE 04/24 1144 DC IV Ondansetron HCl 0 .STK-MED ONE 04/24 1143 DC .ROUTE Orders Procedure Date/time Status LIPASE 04/24 1150 Complete AMYLASE 04/24 1150 Complete DIFFERENTIAL-WBC 04/24 1145 Complete IV SALINE LOCK 04/24 1142 Active CBC WITH AUTO DIFF 04/24 1142 Complete CHEM 12 PROFILE 04/24 1142 Complete Departure Departure Time of Disposition 1351 Disposition DC Home or Self Care(routine) Clinical Impression Primary Impression: Enteritis Condition STABLE Referrals Theresa AMBROSE,Scotty Silva (Family) Patient Instructions DI for Vomiting -- Adult Additional Instructions see pcp this week for follow up Discharge Counseling Counseled pt/family regarding diagnosis, test results, medications/RX, follow up needs Prescriptions Current Visit Scripts ONDANSETRON HCL (Zofran 4MG Tab) 4 MG PO Q8HP PRN NAUSEA AND VOMITING #20 TAB PROMETHAZINE HCL (Phenergan 25MG Tab (Geq)) 25 MG PO Q6HP PRN N/V #14 TAB ED Critical Care Critical Care No at 1352
--- OUTSIDE RECORDS SUMMARY | 2017-04-24 11:50 | External Medical Summary Rpt ---
Author Author [employer] Cohen, [employer] Organization [employer] Address Unknown Phone Unavailable Results CBC W Auto Differential panel in Blood Observa Value Referen Units Interpr Notes Date tion ce etation Range Basophils 0 - 0.2 K/MM3 Normal No Apr 19 informati 2016 8:18 [#/volume on in PM ] in source Blood by data Automated count Basophils 0.1 - 2.0 % Normal No Apr 19 / informati 2016 8:18 leukocyte on in PM s in source Blood by data Automated count Eosinophi 0.0 - 0.4 K/mm3 Normal No Apr 19 ls informati 2016 8:18 [#/volume on in PM ] in source Blood by data Automated count Eosinophi 0.1 - % Normal No Apr 19 ls/100 12.0 informati 2016 8:18 leukocyte on in PM s in source Blood by data Automated count Granulocy 1.8 - 7.8 K/mm3 Normal No Apr 19 kamlesh informati 2017 8:18 [#/volume on in PM ] in source Blood by data Automated count Granulocy 37.0 - % Normal No Apr 19 kamlesh/100 80.0 informati 2016 8:18 leukocyte on in PM s in source Blood by data Automated count Hematocri 37.0 - % Normal No Apr 19 t [Volume 47.0 informati 2016 8:18 on in PM Fraction] source of Blood data Hemoglobi 12.2 - g/dL Normal No Apr 19 n 16.2 informati 2016 8:18 [Mass/vol on in PM ume] in source Blood data Lymphocyt 0.7 - 4.5 K/mm3 Normal No Apr 19 es informati 2016 8:18 [#/volume on in PM ] in source Unspecifi data ed specimen by Automated count Lymphocyt 10 - 50.0 % Normal No Apr 19 es informati 2016 8:18 [#/volume on in PM ] in source Unspecifi data ed specimen by Automated count Erythrocy 27 - 31.2 pg Normal No Apr 19 te mean informati 2016 8:18 corpuscul on in PM ar source hemoglobi data n [Entitic mass] Erythrocy 31.8 - g/dl Normal No Apr 19 te mean 35.4 informati 2016 8:18 corpuscul on in PM ar source hemoglobi data n concentra tion [Mass/vol ume] by Automated count Erythrocy 82.2 - fl Normal No Apr 19 te mean 97.8 informati 2016 8:18 corpuscul on in PM ar volume source [Entitic data volume] by Automated count Monocytes 0.1 - 1.0 K/mm3 Normal No Apr 19 informati 2016 8:18 [#/volume on in PM ] in source Blood by data Automated count Monocytes 1.7 - 9.3 % Normal No Apr 19 /100 informati 2016 8:18 leukocyte on in PM s in source Blood by data Automated count Platelet 7.4 - fl Normal No Apr 19 mean 10.4 informati 2016 8:18 volume on in PM [Entitic source volume] data in Blood by Automated count Platelets 142 - 424 K/mm3 Normal No Apr 19 informati 2016 8:18 [#/volume on in PM ] in source Blood data Erythrocy 4.2 - 5.4 M/mm3 Normal No Apr 19 kamlesh informati 2016 8:18 [#/volume on in PM ] in source Amniotic data fluid Erythrocy 11.5 - % Normal No Apr 19 te 17.5 informati 2016 8:18 distribut on in PM ion width source [Entitic data volume] by Automated count Leukocyte 4.8 - K/MM3 Normal No Apr 19 s 10.8 informati 2016 8:18 [#/volume on in PM ] in source Blood data Influenza virus A+B Ag [Presence] in Unspecified [...] n Influen NOT NOT No No No Mar 19 za DETECTE DETECTD informa informa informa 2017 [...] - 2.0 % Normal No Apr 10 /100 informati [...] No Apr 10 t [Volume 47.0 informati 2016 3:22 on in PM Fraction] source of [...] M/mm3 Normal No Apr 10 kamlesh informati 2016 3:22 [#/volume on in PM ] in source Amniotic data fluid Erythrocy 11.5 - % Normal Apr 10 te 17.5 informati 2016 3:22 [...] Normal No Sep 25 dioxide, 32.0 informati 2016 total on in 11:11 AM [Moles/vo source [...] pg Normal No Sep 25 te mean [email or web address] corpuscul on in 11:11 AM ar source hemoglobi data n [Entitic mass] Erythrocy 31.8 - g/dl Normal No Sep 25 te mean 35.4 [email or web address] corpuscul on in 11:11 AM ar source hemoglobi data n concentra tion [Mass/vol ume] by Automated count Erythrocy 82.2 - fl Normal No Sep 25 te mean 97.8 [email or web address] corpuscul on in 11:11 AM ar volume [...] Normal No Sep 25 mean 10.4 informati 2017 volume on in 11:11 AM [Entitic source [...]
--- OUTSIDE RECORDS SUMMARY | 2017-04-24 11:50 | External Medical Summary Rpt | CCD ---
Author Author , [employer] Address Unknown Phone [email or web address] Immunization Name Date Rout CVX Reac Dose Comm Prov Is Faci e tion ent ider Refu lity Give sed n Td 03-0 9 999 Hist H149 No H149 (solomon 4-19 oric lt), 97 al Info adso rmat rbed ion - Sour ce Unsp ecif ied
--- OUTSIDE RECORDS SUMMARY | 2017-04-24 11:50 | External Medical Summary Rpt | CCD ---
Author Author , ESTER Organization ESTER Address Unknown Phone [email or web address] Care Team Providers Care Gluer And Slicer Hand Name Role Phone Dwayne Pathak III, MD, Dwayne Lehman III, MD Purpose Continuity of Care Document - 10-19-2012 through 2016 Problems Code Diagnosis DOS Provider Status 786.59 786.59 10-19-2012 [place] CHEST PAIN [facility] E03.9 HYPOTHYROID ISM, UNSPECIFIED E11.9 TYPE 2 DIABETES MELLITUS WITHOUT COMPLICATIO NS E78.4 OTHER HYPERLIPIDE JOSE DAVID E78.5 HYPERLIPIDE JOSE DAVID, UNSPECIFIED J20.9 ACUTE BRONCHITIS, UNSPECIFIED J39.9 DISEASE OF UPPER RESPIRATORY TRACT, UNSPECIFIED J45.909 UNSPECIFIED ASTHMA, UNCOMPLICAT ED K64.5 PERIANAL VENOUS THROMBOSIS L23.9 ALLERGIC CONTACT DERMATITIS, UNSPECIFIED CAUSE M54.16 RADICULOPAT HY, LUMBAR REGION R07.9 CHEST PAIN, UNSPECIFIED R53.1 WEAKNESS R74.8 ABNORMAL LEVELS OF OTHER [...] n Ac 0. ti 4M ve G (1 /1 50 Gr ) Vital Signs 10-19-2012 18:40 [...] Order Detail nces retati t Range on Lipase measurement (04-19-2017 20:18) Lipase = 118 73-393 complet measure 017 U/L ed ment 20:18 Comprehensive metabolic panel (04-19-2017 20:18) Protein = 8.1 6.4-8.2 complet total 017 gm/dL ed ser/jordi 20:18 s ALT = 24 12-78 complet (SGPT) 017 U/L ed ser/jordi 20:18 s Serum = 19 15-37 complet or 017 U/L ed plasma 20:18 asparta te aminotr ansfera Serum = 142 136-145 complet sodium 017 mmoL/L ed measure 20:18 ment Serum = 3.5 3.5-5.1 complet potassi 017 mmoL/L ed um 20:18 measure ment Serum = 104 74-106 complet or 017 mg/dL ed plasma 20:18 glucose measure ment (mas Serum = 4.1 1.3-3.2 complet globuli 017 gm/dL ed n 20:18 measure ment (mass/v olume) Estimat = 63 59- complet ed 017 ML/MIN ed glomeru 20:18 lar filtrat ion rate (GF Comment: REFERENCE RANGE: >60 ML/MIN/1.73 SQUARE METERS Comment: If this patient is -[place]i, then multiply the Comment: result by 1.210. Estimat = 77 50-200 complet ion of 017 ML/MIN ed creatin 20:18 ine renal clearan ce Serum = 0.9 0.55-1. complet or 017 mg/dL 02 ed plasma 20:18 creatin ine measure ment ( Carbon = 29 21.0-32 complet dioxide 017 mmoL/L .0 ed 20:18 measure ment Serum = 105 98-107 complet or 017 mmoL/L ed plasma 20:18 chlorid e measure ment (mo Serum = 9.5 8.5-10. complet or 017 mg/dL 1 ed plasma 20:18 calcium measure ment (mas Serum = 8 7-18 complet or 017 mg/dL ed plasma 20:18 urea nitroge n measure men Serum = 0.3 0.2-1.0 complet or 017 mg/dL ed plasma 20:18 total bilirub in measure m Serum = 93 46-116 complet or 017 U/L ed plasma 20:18 alkalin e phospha tase jesusita Serum = 4.0 3.4-5.0 complet or 017 gm/dL ed plasma 20:18 albumin measure ment (mas Serum = 1.0 1.1-1.8 complet or 017 ed plasma 20:18 albumin /globul in mass ra Cardiac enzymes (04-19-2017 20:18) Serum < 0.02 0.00-0. complet or 017 ng/mL 06 ed plasma 20:18 troponi n i.cardi ac measu Serum = 91 26-192 complet or 017 U/L ed plasma 20:18 creatin e kinase measure m Serum = 1.0 0.0-3.6 complet or 017 ng/mL ed plasma 20:18 creatin e kinase MB measu Serum = 1.1 0-4.0 complet or 017 U/L ed plasma 20:18 creatin e kinase MB (CK-M CBC w auto diff (04-19-2017 20:18) Blood = 8.5 4.8-10. complet leukocy 017 K/MM3 8 ed kamlesh 20:18 count (number /volume ) Automat = 12.4 11.5-17 complet ed 017 % .5 ed erythro 20:18 cyte distrib ution width Red = 4.33 4.2-5.4 complet blood 017 M/mm3 ed cell 20:18 count Blood = 244 142-424 complet platele 017 K/mm3 ed t count 20:18 Automat = 9.2 7.4-10. complet ed 017 fl 4 ed blood 20:18 platele t mean volume jesusita [place] % = 6.7 % 1.7-9.3 complet 017 ed 20:18 Absolut = 0.6 0.1-1.0 complet e 017 K/mm3 ed monocyt 20:18 e count Automat = 88.6 82.2-97 complet ed 017 fl .8 ed erythro 20:18 cyte mean corpusc ular v Automat = 33.6 31.8-35 complet ed 017 g/dl .4 ed erythro 20:18 cyte mean corpusc ular h Mean = 29.8 27-31.2 complet corpusc 017 pg ed ular 20:18 hemoglo bin (MCH) determ Lymphoc = 34.1 10-50.0 complet yte 017 % ed count, 20:18 blood, automat ed Absolut = 2.9 0.7-4.5 complet e 017 K/mm3 ed lymphoc 20:18 yte count Blood = 12.9 12.2-16 complet hemoglo 017 g/dL .2 ed bin 20:18 measure ment (mass/v olum Blood = 38.3 37.0-47 complet hematoc 017 % .0 ed rit 20:18 (volume fractio n) Granulo = 56.2 37.0-80 complet cyte 017 % .0 ed percent 20:18 age Blood = 4.8 1.8-7.8 complet granulo 017 K/mm3 ed cytes 20:18 automat ed count (numb Automat = 2.5 % 0.1-12. complet ed 017 0 ed blood 20:18 eosinop hils/10 0 leukocy t Automat = 0.2 0.0-0.4 complet ed 017 K/mm3 ed blood 20:18 eosinop hil count Baso % = 0.5 % 0.1-2.0 complet 017 ed 20:18 Automat 2 = 0.0 0-0.2 complet ed 017 K/MM3 ed blood 20:18 basophi l count (count/ vo Comprehensive metabolic panel (04-10-2017 15:22) Protein = 7.5 6.4-8.2 complet total 017 gm/dL ed ser/jordi 15:22 s ALT = 19 12-78 complet (SGPT) 017 U/L ed ser/jordi 15:22 s Serum = 15 15-37 complet or 017 U/L ed plasma 15:22 asparta te aminotr ansfera Serum = 145 136-145 complet sodium 017 mmoL/L ed measure 15:22 ment Serum = 3.4 3.5-5.1 complet potassi 017 mmoL/L ed um 15:22 measure ment Serum = 114 74-106 complet or 017 mg/dL ed plasma 15:22 glucose measure ment (mas Serum = 3.9 1.3-3.2 complet globuli 017 gm/dL ed n 15:22 measure ment (mass/v olume) Estimat = 55 59- complet ed 017 ML/MIN ed glomeru 15:22 lar filtrat ion rate (GF Comment: REFERENCE RANGE: >60 ML/MIN/1.73 SQUARE METERS Comment: If this patient is -[place], then multiply the Comment: result by 1.210. Estimat = 71 50-200 complet ion of 017 ML/MIN ed creatin 15:22 ine renal clearan ce Serum = 1.0 0.55-1. complet or 017 mg/dL 02 ed plasma 15:22 creatin ine measure ment ( Carbon = 32 21.0-32 complet dioxide 017 mmoL/L .0 ed 15:22 measure ment Serum = 105 98-107 complet or 017 mmoL/L ed plasma 15:22 chlorid e measure ment (mo Serum = 9.2 8.5-10. complet or 017 mg/dL 1 ed plasma 15:22 calcium measure ment (mas Serum = 9 7-18 complet or 017 mg/dL ed plasma 15:22 urea nitroge n measure men Serum = 0.4 0.2-1.0 complet or 017 mg/dL ed plasma 15:22 total bilirub in measure m Serum = 93 46-116 complet or 017 U/L ed plasma 15:22 alkalin e phospha tase jesusita Serum = 3.6 3.4-5.0 complet or 017 gm/dL ed plasma 15:22 albumin measure ment (mas Serum = 0.9 1.1-1.8 complet or 017 ed plasma 15:22 albumin /globul in mass ra Cardiac enzymes (04-10-2017 15:22) Serum < 0.02 0.00-0. complet or 017 ng/mL 06 ed plasma 15:22 troponi n i.cardi ac measu Serum = 56 26-192 complet or 017 U/L ed plasma 15:22 creatin e kinase measure m Serum < 0.5 0.0-3.6 complet or 017 ng/mL ed plasma 15:22 creatin e kinase MB measu Serum = 0.9 0-4.0 complet or 017 U/L ed plasma 15:22 creatin e kinase MB (CK-M Influenza A and B virus antigen assay (04-10-2017 15:22) Influen NOT NOT complet za 017 DETECTE DETECTD ed virus B 15:22 D NOT DETECTE antigen D L detecti on Influen NOT NOT complet za A ag 017 DETECTE DETECTD ed QL 15:22 D NOT DETECTE D L CBC w auto diff (04-10-2017 15:22) [place] % = 7.4 % 1.7-9.3 complet 017 ed 15:22 Absolut = 0.5 0.1-1.0 complet e 017 K/mm3 ed monocyt 15:22 e count Automat = 90.6 82.2-97 complet ed 017 fl .8 ed erythro 15:22 cyte mean corpusc ular v Automat = 32.9 31.8-35 complet ed 017 g/dl .4 ed erythro 15:22 cyte mean corpusc ular h Mean = 29.8 27-31.2 complet corpusc 017 pg ed ular 15:22 hemoglo bin (MCH) determ Lymphoc = 23.7 10-50.0 complet yte 017 % ed count, 15:22 blood, automat ed Absolut = 1.4 0.7-4.5 complet e 017 K/mm3 ed lymphoc 15:22 yte count Blood = 13.4 12.2-16 complet hemoglo 017 g/dL .2 ed bin 15:22 measure ment (mass/v olum Blood = 40.8 37.0-47 complet hematoc 017 % .0 ed rit 15:22 (volume fractio n) Granulo = 64.9 37.0-80 complet cyte 017 % .0 ed percent 15:22 age Blood = 3.9 1.8-7.8 complet granulo 017 K/mm3 ed cytes 15:22 automat ed count (numb Automat = 3.4 % 0.1-12. complet ed 017 0 ed blood 15:22 eosinop hils/10 0 leukocy t Automat = 0.2 0.0-0.4 complet ed 017 K/mm3 ed blood 15:22 eosinop hil count Baso % = 0.7 % 0.1-2.0 complet 017 ed 15:22 Blood = 6.0 4.8-10. complet leukocy 017 K/MM3 8 ed kamlesh 15:22 count (number /volume ) Automat = 12.4 11.5-17 complet ed 017 % .5 ed erythro 15:22 cyte distrib ution width Red = 4.50 4.2-5.4 complet blood 017 M/mm3 ed cell 15:22 count Blood = 207 142-424 complet platele 017 K/mm3 ed t count 15:22 Automat = 9.9 7.4-10. complet ed 017 fl 4 ed blood 15:22 platele t mean volume jesusita Automat = 0.0 0-0.2 complet ed 017 K/MM3 ed blood 15:22 basophi l count (count/ vo Influenza virus A+B Ag [Presence] in Unspecified specimen (04-10-2017 15:22) Influen NOT NOT complet za 017 DETECTE DETECTD ed virus A 15:22 D Ag [Presen ce] in Unspeci fied specime n Influen NOT NOT complet za 017 DETECTE DETECTD ed virus B 15:22 D Ag [Presen ce] in Unspeci fied specime n COMPREHENSIVE METABOLIC PANEL (10-19-2012 14:45) Glucose 10-19-2 89 74-106 complet 013 mg/dL ed Bld-mCn 14:45 c BUN 10-19-2 19 7-18 complet Bld-mCn 013 mg/dL ed c 14:45 Creat 2 0.9 0.6-1.0 complet SerPl-m 013 mg/dL ed [...] 013 mmoL/L .0 ed Cnc 14:45 Calcium -30-2 9.1 8.5-10. complet 013 mg/dL 1 ed SerPl-m 14:45 Cnc Prot -30-2 7.8 6.4-8.2 complet SerPl-m 013 gm/dL ed Cnc 14:45 Albumin -30-2 3.2 3.4-5.0 complet 013 gm/dL ed SerPl-m 14:45 Cnc Globuli 10-19-2 4.6 1.3-3.2 complet n 013 gm/dL ed [...] 013 K/mm3 ed Bld 14:45 Auto Lymphoc -30-2 2.4 0.7-4.5 complet ytes Fr 013 K/mm3 ed Bld 14:45 Auto Monocyt 05-30-2 0.4 0.1-1.0 complet es # 013 K/mm3 ed Bld 14:45 Auto Eosinop -30-2 0.3 0.0-0.4 complet hil # 013 K/mm3 ed Bld 14:45 Auto Basophi 05-30-2 0.1 0-0.2 complet ls # 013 K/MM3 ed Bld 14:45 Auto Encounters Encounter Start End Date Code Location Performer Type Date Emergency SHEKHAR Lehman (ER) 3 15:10 3 18:42 [facility] Dwayne James
--- OUTSIDE RECORDS SUMMARY | 2017-04-24 11:50 | External Medical Summary Rpt | CCD ---
Author Author , ESTER Organization ESTER Address Unknown Phone [email or web address] Immunization Name Date Rout CVX Reac Dose Comm Prov Is Faci e tion ent ider Refu lity Give sed n Td 03-0 9 999 Hist H149 No H149 (solomon 4-19 oric lt), 97 al Info adso rmat rbed ion - Sour ce Unsp ecif ied
--- OUTSIDE RECORDS SUMMARY | 2017-04-24 11:50 | External Medical Summary Rpt | CCD ---
Author Author , ESTER Organization ESTER Address Unknown Phone [email or web address] Care Team Providers Care Psychiatric Nurse Practitioner Name Role Phone Dwayne Pathak III, MD, Dwayne Lehman III, MD Purpose Continuity of Care Document - 10-19-2012 through 2016 Problems Code Diagnosis DOS Provider Status 786.59 786.59 10-19-2012 [place] CHEST PAIN [facility] E03.9 HYPOTHYROID ISM, UNSPECIFIED E11.9 TYPE [...] SQUARE METERS Comment: If this patient is -Micronesian, then multiply the Comment: result by 1.210. [...] blood 20:18 platele t mean volume jesusita [place] % = 6.7 % 1.7-9.3 complet 017 [...] SQUARE METERS Comment: If this patient is -Micronesian, then multiply the Comment: result by 1.210. [...] L CBC w auto diff (04-10-2017 15:22) [place] % = 7.4 % 1.7-9.3 complet 017 [...] SHEKHAR Lehman (ER) 3 15:10 3 18:42 [facility] Dwayne James
[2017-04-24 12:02] LABS: HEMOGLOBIN 12.6 g/dL (12.2-16.2); LYMPH # 0.8 K/mm3 (0.7-4.5); LYMPH % 8.4 % (10-50.0)
[2017-04-24 12:18] LABS: NEUTROPHILS 88 % (42-76)
[2017-04-24] MEDS ORDERED: PHENERGAN25 M3 PO (13:52)
[2017-04-24] MEDS ORDERED: ZOFRAN4 MG PO (13:52)
[2017-04-24 13:54] VITALS: BP 168/84
== END 2017-04-24 13:57 | disposition home or self-care (01) ==
LOC: ER 11:34
PROVIDERS: Emergency Medicine
DX: A08.4 Viral intestinal infection, unspecified (principal); F17.210 Nicotine dependence, cigarettes, uncomplicated; K21.9 Gastro-esophageal reflux disease without esophagitis; E78.5 Hyperlipidemia, unspecified; I10 Essential (primary) hypertension
CPT/HCPCS: J2405